=== PATIENT | male | born 1950 | race American Indian/Alaskan Native ===

== ENCOUNTER 2019-01-25 08:28 | Day surgery (SDC) | payer BC ==
[2019-01-25] MEDS ORDERED: XYLOCAINE MPF 2% ONE (08:38)
[2019-01-25] MEDS ORDERED: VERSED ONE (08:38)
[2019-01-25] MEDS ORDERED: DIPRIVAN 10 MG/ML IV ONE ×2 (08:38)
[2019-01-25] MEDS ORDERED: NACL 0.9% 500 ML 500 ML IV SCH (09:00)
[2019-01-25] MEDS ORDERED: HURRICAINE ONE 20% TOPICAL SPRAY MM NR (09:00)
[2019-01-25 09:32] LABS: Basophils % (Auto) 0.9 % (0.0-1.8); Eosinophils # (Auto) 0.1 K/mm3 (0.0-0.4); Eosinophils % (Auto) 2.7 % (0.0-4.3); Hematocrit 48.4 % (35.5-45.6); Hemoglobin 16.2 gm/dl (11.8-15.2); Lymphocytes # (Auto) 1.5 K/mm3 (1.2-5.4); Lymphocytes % (Auto) 33.7 % (13.4-35.0); Mean Corpuscular HGB Conc 33 % (32-34); Mean Corpuscular Volume 83 fl (84-94); Monocytes # (Auto) 0.4 K/mm3 (0.0-0.8); Monocytes % (Auto) 8.4 % (0.0-7.3); Red Blood Count 5.83 M/mm3 (3.65-5.03)
[2019-01-25 09:50] LABS: INR 1.11 (0.87-1.13)
[2019-01-25 09:51] LABS: BUN/Creatinine Ratio 18; Blood Urea Nitrogen 21 mg/dL (9-20); Calcium 8.6 mg/dL (8.4-10.2); Hemolysis Index 123; Partial Thromboplastin Time 24.7 Sec. (24.2-36.6)
[2019-01-25 10:30] LABS: Platelet Count 98 K/mm3 (140-440)
[2019-01-25 12:03] VITALS: BP 160/110
== END 2019-01-25 13:22 | disposition home or self-care (01) ==
LOC: CATHLABREC 08:28 → EDSTATUS 09:30 → CATHLABREC 13:22
PROVIDERS: ATTEND Internal Medicine
DX: I08.0 Rheumatic disorders of both mitral and aortic valves (principal); I48.91 Unspecified atrial fibrillation; I10 Essential (primary) hypertension; R06.02 Shortness of breath; E78.00 Pure hypercholesterolemia, unspecified; Z79.899 Other long term (current) drug therapy; Z91.19 Patient's noncompliance with other medical treatment and regimen; Z98.890 Other specified postprocedural states; Z86.73 Personal history of transient ischemic attack (TIA), and cerebral infarction without residual deficits
CPT/HCPCS: 36415; 80048; 85025; 85610; 85730; 93005; 93010; 93312; 93320; 93325; J2250; J2704; J7040